=== PATIENT | female | born 1975 | race Caucasian/White ===

== ENCOUNTER 2019-08-01 14:42 | Emergency (ER) | payer MEDICARE, BC ==
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
--- NOTE | 2019-08-01 16:01 | CT ---
CT cervical spine Technique: Multiple axial sections were obtained from above C1 inferiorly to the mid T2 level. Reconstructed sagittal and coronal images were reviewed. Comparison: No prior CT cervical spine study, previous MRI cervical spine exam of 10/29/17. Findings: Mild degenerative change is noted between the dens and anterior arch of C1. Mild disc space narrowing at C5-6. Moderate disc space narrowing is noted at C6-7. Anterior osteophytes are noted at C6-7 with smaller osteophytes at C5-6. Calcification is seen within the posterior longitudinal ligament posterior to C6. Slight posterior osteophytes are noted at C6-7. Minimal degenerative change is scattered within the apophyseal joints. No fracture is appreciated. No bony central lower bony neural foraminal stenosis is seen. Minimal ligamentum nuchal calcification is seen. Impression: 1. Scattered degenerative change. 2. No acute fracture or abnormal subluxation is seen on CT study of the cervical spine. Diagnostic code #2 This report was dictated in [place] Standard Time
[2019-08-01] MEDS ORDERED: HYDROmorphone 1 MG/ML Syringe IM ONE (16:15)
[2019-08-01] MEDS ORDERED: Promethazine 25 MG/ML SDV IM ONE (16:15)
== END 2019-08-01 16:40 | disposition home or self-care (01) ==
LOC: JD.ED 14:42
DX: S13.4XXA Sprain of ligaments of cervical spine, initial encounter (principal); S33.5XXA Sprain of ligaments of lumbar spine, initial encounter; F17.210 Nicotine dependence, cigarettes, uncomplicated; Z88.0 Allergy status to penicillin; Z88.8 Allergy status to other drugs, medicaments and biological substances; Z79.899 Other long term (current) drug therapy; V89.2XXA Person injured in unspecified motor-vehicle accident, traffic, initial encounter
CPT/HCPCS: 72125; 96372; 99284; J1170; J2550; 99283

== ENCOUNTER 2022-10-15 08:45 | Day surgery (SDC) | payer MEDICARE, MEDICAID ==
[~2022-10-15 08:45] MED LIST: Lactated Ringers 1,000 ML IV SCH; Lidocaine 1%/Sod Bicarbonate in NS 8.4% 1 ML Syringe IDERM PRN; Sodium Chloride 0.9% 10 ML Syringe FLUSH PRN; Sodium Chloride 0.9% 10 ML Syringe FLUSH SCH
[2022-10-15] MEDS ORDERED: Propofol 200 MG/20 ML SDV ONE ×3 (10:19→11:10)
[2022-10-15] MEDS ORDERED: Lidocaine 1% 4 ML ONE (10:19)
[2022-10-15] MEDS ORDERED: Midazolam 1 MG/ML 2 ML SDV ONE (10:35)
== END 2022-10-15 12:18 | disposition home or self-care (01) ==
LOC: JD.SDS 08:45
PROVIDERS: ATTEND Surgery
DX: D12.2 Benign neoplasm of ascending colon (principal); K62.1 Rectal polyp; K31.89 Other diseases of stomach and duodenum; K29.80 Duodenitis without bleeding; K29.70 Gastritis, unspecified, without bleeding; K31.7 Polyp of stomach and duodenum; K22.70 Barrett's esophagus without dysplasia; K21.9 Gastro-esophageal reflux disease without esophagitis; E78.2 Mixed hyperlipidemia; E66.9 Obesity, unspecified; F41.9 Anxiety disorder, unspecified; F17.210 Nicotine dependence, cigarettes, uncomplicated; F32.A Depression, unspecified; G89.29 Other chronic pain; M54.2 Cervicalgia; M54.9 Dorsalgia, unspecified; J44.9 Chronic obstructive pulmonary disease, unspecified; Z98.890 Other specified postprocedural states; Z79.899 Other long term (current) drug therapy; Z88.0 Allergy status to penicillin; Z88.8 Allergy status to other drugs, medicaments and biological substances; Z68.41 Body mass index [BMI] 40.0-44.9, adult
CPT/HCPCS: 43239; 45380; J2250; J2704; J7120; 00813; J3490

== ENCOUNTER 2022-12-14 09:42 | Emergency (ER) | payer MEDICARE, MEDICAID ==
[2022-12-14] MEDS ORDERED: Ketorolac 60 MG/2 ML SDV IM ONE (10:33)
[2022-12-14] MEDS ORDERED: Cyclobenzaprine 10 MG Tab PO ONE (10:33)
[2022-12-14] MEDS ORDERED: HYDROmorphone 1 MG/ML Syringe IM ONE (10:33)
== END 2022-12-14 12:25 | disposition home or self-care (01) ==
LOC: JD.ED 09:42
DX: M54.42 Lumbago with sciatica, left side (principal); J44.9 Chronic obstructive pulmonary disease, unspecified; F17.210 Nicotine dependence, cigarettes, uncomplicated; Z88.0 Allergy status to penicillin; Z88.1 Allergy status to other antibiotic agents
CPT/HCPCS: 72100; 96372; 99283; A9270; J1170; J1885

== ENCOUNTER 2024-03-31 04:28 | Emergency (ER) | payer BC, MEDICARE ==
[2024-03-31] MEDS ORDERED: Sodium Chloride 0.9% 10 ML Syringe FLUSH PRN (05:30)
[2024-03-31] MEDS: Ketorolac 30 MG/ML SDV IVPUSH ONE (05:49)
[2024-03-31] MEDS: methylPREDNISolone Sodium Succinate 125 MG/2 ML SDV IVPUSH ONE (05:49)
== END 2024-03-31 07:03 | disposition home or self-care (01) ==
LOC: JD.ED 04:28
DX: M54.50 Low back pain, unspecified (principal); K21.9 Gastro-esophageal reflux disease without esophagitis; J44.9 Chronic obstructive pulmonary disease, unspecified; F17.210 Nicotine dependence, cigarettes, uncomplicated; Z88.0 Allergy status to penicillin; Z88.8 Allergy status to other drugs, medicaments and biological substances; Z79.899 Other long term (current) drug therapy
CPT/HCPCS: 96374; 96375; 99283; J1885; J2919; J3360; 99284

== ENCOUNTER 2024-07-18 00:29 | Emergency (ER) | payer BC, MEDICARE ==
[2024-07-18] MEDS: Ketorolac 30 MG/ML SDV IM ONE (01:04)
== END 2024-07-18 02:28 | disposition home or self-care (01) ==
LOC: JD.ED 00:29
DX: M79.675 Pain in left toe(s) (principal); L53.9 Erythematous condition, unspecified; J44.9 Chronic obstructive pulmonary disease, unspecified; K21.9 Gastro-esophageal reflux disease without esophagitis; Z88.0 Allergy status to penicillin; Z88.8 Allergy status to other drugs, medicaments and biological substances; Z79.899 Other long term (current) drug therapy
CPT/HCPCS: 73660; 96372; 99283; J1885